=== PATIENT | female | born 1965 | race Caucasian/White ===

== ENCOUNTER 2018-02-10 09:53 | Outpatient (CLI) | payer OTHER ==
[~2018-02-10 09:53] MED LIST: VOLTAREN-XR100 MG PO
== END 2018-02-10 10:06 | disposition home or self-care (01) ==
LOC: SONOGRAMA 09:53
DX: D25.0 Submucous leiomyoma of uterus (principal)

== ENCOUNTER 2018-08-11 08:48 | Outpatient (CLI) | payer OTHER | END 2018-08-11 15:00 | disposition home or self-care (01) | LOC: LAB 08:48 | DX: N20.0 Calculus of kidney (principal); Z51.81 Encounter for therapeutic drug level monitoring ==

== ENCOUNTER 2018-08-11 10:16 | Outpatient (CLI) | payer OTHER | END 2018-08-11 15:39 | disposition home or self-care (01) | LOC: TOM 10:16 | DX: R10.2 Pelvic and perineal pain (principal) ==

== ENCOUNTER 2019-08-30 08:46 | Outpatient (CLI) | payer OTHER | END 2019-08-30 08:55 | disposition home or self-care (01) | LOC: TOM 08:46 | DX: K56.5 Intestinal adhesions [bands] with obstruction (postinfection) (principal) ==

== ENCOUNTER 2020-08-03 10:15 | Outpatient (CLI) | payer OTHER | END 2020-08-03 10:19 | disposition HB | LOC: MAMO-SONO 10:15 → SONOGRAMA 10:15 → MAMO-SONO 10:19 | PROVIDERS: ATTEND Obstetrics & Gynecology | DX: Z12.31 Encounter for screening mammogram for malignant neoplasm of breast (principal); N64.59 Other signs and symptoms in breast; N60.11 Diffuse cystic mastopathy of right breast; N60.12 Diffuse cystic mastopathy of left breast ==

== ENCOUNTER 2020-08-03 11:21 | Outpatient (CLI) | payer OTHER | END 2020-08-03 11:22 | disposition home or self-care (01) | LOC: NUCLEAR 11:21 | PROVIDERS: ATTEND Obstetrics & Gynecology | DX: M81.0 Age-related osteoporosis without current pathological fracture (principal) ==

== ENCOUNTER → 2021-09-13 | Outpatient (CLI) | payer OTHER | END | disposition home or self-care (01) | LOC: MAMO-SONO 10:42 | PROVIDERS: ATTEND Obstetrics & Gynecology | DX: R10.2 Pelvic and perineal pain (principal); N60.11 Diffuse cystic mastopathy of right breast; N60.12 Diffuse cystic mastopathy of left breast ==

== ENCOUNTER 2022-12-03 12:05 | Outpatient (CLI) | payer OTHER | END 2022-12-03 12:17 | disposition home or self-care (01) | LOC: MAMO-SONO 12:05 | PROVIDERS: ATTEND Student in an Organized Health Care Education/Training Program | DX: N60.11 Diffuse cystic mastopathy of right breast (principal); N60.12 Diffuse cystic mastopathy of left breast; Z12.31 Encounter for screening mammogram for malignant neoplasm of breast ==

== ENCOUNTER 2022-12-12 11:10 | Outpatient (CLI) | payer OTHER | END 2022-12-12 11:29 | disposition home or self-care (01) | LOC: RAD 11:10 | PROVIDERS: ATTEND Internal Medicine Cardiovascular Disease | DX: M12.9 Arthropathy, unspecified (principal) ==

== ENCOUNTER 2023-04-09 07:09 | Outpatient (CLI) | payer OTHER | END 2023-04-09 07:10 | disposition home or self-care (01) | LOC: NUCLEAR 07:09 | PROVIDERS: ATTEND Internal Medicine Cardiovascular Disease | DX: M12.9 Arthropathy, unspecified (principal) ==

== ENCOUNTER 2023-05-15 15:19 | Outpatient (CLI) | payer OTHER | END 2023-05-15 15:41 | disposition home or self-care (01) | LOC: MRI 15:19 | PROVIDERS: ATTEND Orthopaedic Surgery | DX: S83.200A Bucket-handle tear of unspecified meniscus, current injury, right knee, initial encounter (principal); M25.561 Pain in right knee; M25.562 Pain in left knee | CPT/HCPCS: 73718 ==

== ENCOUNTER 2024-01-05 09:10 | Outpatient (CLI) | payer OTHER | END 2024-01-05 09:11 | disposition home or self-care (01) | LOC: NUCLEAR 09:10 | PROVIDERS: ATTEND Internal Medicine Cardiovascular Disease | DX: G45.9 Transient cerebral ischemic attack, unspecified (principal); I10 Essential (primary) hypertension ==

== ENCOUNTER 2024-02-02 08:00 | Outpatient (CLI) | payer OTHER | END 2024-02-02 08:01 | disposition home or self-care (01) | LOC: NUCLEAR 08:00 | PROVIDERS: ATTEND Internal Medicine Cardiovascular Disease | DX: R07.9 Chest pain, unspecified (principal) ==

== ENCOUNTER 2024-02-02 09:52 | Outpatient (CLI) | payer OTHER | END 2024-02-02 10:00 | disposition home or self-care (01) | LOC: MAMO-SONO 09:52 | PROVIDERS: ATTEND Obstetrics & Gynecology | DX: N60.11 Diffuse cystic mastopathy of right breast (principal); N60.12 Diffuse cystic mastopathy of left breast ==